=== PATIENT | male | born 1960 | race Caucasian/White ===

== ENCOUNTER 2020-07-02 05:57 | Day surgery (SDC) | payer BC ==
[2020-07-02] VITALS (12 sets, daily range): BP systolic 118–163; BP diastolic 68–93
[~2020-07-02] VITALS: Ht 188 cm; Wt 106.4 kg
[2020-07-02] MEDS ORDERED: diphenhydrAMINE 25mg capsule PO PRN (06:20)
[2020-07-02] MEDS ORDERED: normal saline 1,000 ML IV SCH (06:20)
[2020-07-02] MEDS ORDERED: LIDOcaine/PRILOcaine 5gm cream TP ONE (06:20)
[2020-07-02] MEDS ORDERED: LORazepam 0.5 MG tablet PO PRN (06:20)
[2020-07-02] MEDS ORDERED: ROSU10TA2 PO (06:24)
[2020-07-02] MEDS ORDERED: AMLO-254 PO (06:24)
[2020-07-02] MEDS ORDERED: ALB0.5UD IH (06:24)
[2020-07-02] MEDS ORDERED: CARV-50 PO (06:24)
[2020-07-02] MEDS ORDERED: midazolam 2 mg/2 ml injection ONE (08:12)
[2020-07-02] MEDS ORDERED: fentaNYL/PF 50MCG/1 ML 2ML syringe ONE (08:12)
[2020-07-02] MEDS ORDERED: LIDOcaine 1% (10mg/ml)w/preservative injection 20ml MDV ONE (08:12)
[2020-07-02] MEDS ORDERED: iohexol 350MG/ML 100ml bottle IV ONE (08:12)
[2020-07-02] MEDS ORDERED: heparin 1,000unit/ml 10ml vial 10 ML ONE (08:14)
[2020-07-02] MEDS ORDERED: nitroGLYCERIN-Tridil 50MG/D5W 250 ML IV ONE (08:14)
[2020-07-02] MEDS ORDERED: verapamil 2.5 mg/ml inj IV ONE (08:14)
== END 2020-07-02 12:50 | disposition home or self-care (01) ==
LOC: SSTAY O 05:57
PROVIDERS: ATTEND Internal Medicine Interventional Cardiology
DX: R94.39 Abnormal result of other cardiovascular function study (principal); R06.02 Shortness of breath; I25.10 Atherosclerotic heart disease of native coronary artery without angina pectoris; I25.82 Chronic total occlusion of coronary artery; I11.9 Hypertensive heart disease without heart failure; I08.1 Rheumatic disorders of both mitral and tricuspid valves; E78.00 Pure hypercholesterolemia, unspecified; J45.909 Unspecified asthma, uncomplicated; Z79.899 Other long term (current) drug therapy; Z98.890 Other specified postprocedural states; Z82.49 Family history of ischemic heart disease and other diseases of the circulatory system
CPT/HCPCS: 93005; 93308; 93458; 93880; 93931; 93971; 94010; 99152; C1769; C1894; J1644; J2001; J2250; J3010; J7030; Q0163; Q9967; A4620; A5120; J3490

== ENCOUNTER 2020-07-17 05:17 | Inpatient (IN) | payer BC ==
[2020-07-10 13:23] LABS: CLARITY,URINE CLEAR (Clear); COLOR,URINE YELLOW (Yellow); GLUCOSE, URINE NEGATIVE (Neg); KETONES,URINE NEGATIVE (Neg); LEUKOCYTE ESTERASE ,URINE NEGATIVE (Neg); NITRITES, URINE NEGATIVE (Neg); OCCULT BLOOD,URINE SMALL (Neg); PH,URINE 5.5 (4.8-8.0); PROTEIN,URINE NEGATIVE (Neg); UROBILINOGEN,URINE 0.2 E.U/dL (0.2-1.0)
[2020-07-10 13:25] LABS: UA COLLECTION TYPE CLN CATCH MIDSTREAM
[2020-07-10 13:26] LABS: BASOPHILS % (AUTO) 0.5 % (0-1); EOSINOPHILS # (AUTO) 0.2 X10'3 (0-0.9); EOSINOPHILS % (AUTO) 2.6 % (0-6); LYMPHOCYTES # (AUTO) 1.8 X10'3 (1.1-4.8); LYMPHOCYTES % (AUTO) 22.3 % (21-51); MEAN CORPUSCULAR HEMOGLOBIN 32.7 PG (27.0-31.0); MEAN CORPUSCULAR HGB CONC 34.3 g/dL (33.0-36.5); MEAN CORPUSCULAR VOLUME 95.3 FL (78-98); MEAN PLATELET VOLUME 8.5 FL (7.4-10.4); MONOCYTES # (AUTO) 0.8 X10'3 (0-0.9); MONOCYTES % (AUTO) 9.6 % (2-12); NEUTROPHILS # (AUTO) 5.1 X10'3 (1.8-7.7); PRE OP HEMATOCRIT 47.2 % (42.0-52.0); PRE OP HEMOGLOBIN 16.2 g/dL (14.0-17.9); PRE OP PLATELET COUNT 194 X10'3 (140-440); RED BLOOD COUNT 4.95 X10'6 (4.70-6.10); RED CELL DISTRIBUTION WIDTH 13.2 % (11.5-14.5)
[2020-07-10 13:34] LABS: HEMOGLOBIN A1C 5.7 % (4.5-6.2)
[2020-07-10 13:36] LABS: PRE OP PROTIME 10.5 SECONDS (9.0-12.0)
[2020-07-10 13:40] LABS: MUCUS STRANDS FEW /LPF (Neg); SQUAMOUS EPITHELIAL CELL,UR FEW /LPF (FEW)
[2020-07-10 13:41] LABS: BACTERIA,URINE FEW /HPF (Neg); RBC,URINE 0-2 /HPF (0-2); WBC,URINE 0-4 /HPF (0-4)
[2020-07-10 13:41] LABS: ALBUMIN 4.3 G/DL (3.4-5.0); ALKALINE PHOSPHATASE 83 IU/L (46-116); BLOOD UREA NITROGEN 20 MG/DL (7-18); BUN/CREATININE RATIO 19.8 (5.4-32.0); CALCIUM 9.5 MG/DL (8.5-10.1); CHLORIDE 102 MMOL/L (99-107); CREATININE 1.01 MG/DL (0.60-1.10); PRE OP ALT 65 U/L (30-65); PRE OP ANION GAP 7 (8-16); PRE OP AST 30 U/L (10-37); PRE OP BILIRUB, TOTAL 0.8 MG/DL (0.0-1.0); PRE OP GLUCOSE 99 MG/DL (70-104); PRE OP POTASSIUM 4.4 MMOL/L (3.4-5.1); PRE OP SODIUM 138 MMOL/L (135-145); TOTAL PROTEIN 8.5 G/DL (6.4-8.2); eGFR 76 ML/MIN
[2020-07-10 14:01] LABS: ABG BASE EXCESS -1.9 mmol/L (-2.0-2.0); ABG HCO3 21.4 mmol/L (22.0-26.0); ABG OXYGEN SATURATION 97.3 % (94-97); ABG PCO2 (T) 32.7 mmHg (35.0-48.0); ABG PO2 (T) 95.7 mmHg (75.0-100.0); ALLEN'S TEST POSITIVE; FCOHb 0.6 % (0.0-3.9); FMetHb 0.2 % (0.0-1.5); FO2Hb 96.5 % (94-97); TOTAL HEMOGLOBIN 16.2 G/dl (14.0-18.0)
[~2020-07-17] VITALS: Ht 182.9 cm; Wt 102.2 kg
[2020-07-17] VITALS (15 sets, daily range): BP systolic 102–144; BP diastolic 51–91
[~2020-07-17 05:17] MED LIST: AMLO-94 PO; ASPI81TA52 PO; CARV-50 PO; LORazepam 2 mg/ml vial ONE; ROSU20TA31 PO; albuterol 2.5 MG/3 ML nebule NEB PRN; ceFAZolin 1000mg inj ONE; ringers solution, lacted 1,000 ML IV SCH
[2020-07-17] MEDS ORDERED: dextrose 50%-water 50ml dispensing syringe IV PRN ×2 (05:30→12:30)
[2020-07-17] MEDS ORDERED: insulin glargine (Lantus) pen - multi-dose SQ PRN ×2 (05:30→12:30)
[2020-07-17] MEDS ORDERED: vancomycin 1,500 MG in NS 300ml IV soln IV ONE (05:30)
[2020-07-17] MEDS ORDERED: ceFAZolin 2gm in dextrose, iso 50 ML IV ONE (05:30)
[2020-07-17] MEDS ORDERED: metoprolol tartrate 12.5mg (1/2 tablet) PO ONE (05:30)
[2020-07-17] MEDS ORDERED: DOCUMENT DATE & TIME OF BETA-BLOCKER PO ONE (05:30)
[2020-07-17] MEDS ORDERED: famotidine 20mg tablet PO ONE (05:30)
[2020-07-17] MEDS ORDERED: mupirocin 2% nasal ointment 1gm UD NS ONE (05:30)
[2020-07-17] MEDS ORDERED: gabapentin 400mg capsule PO ONE (05:30)
[2020-07-17] MEDS: Insulin Reg/NS 100units/100mL 100 ML IV SCH (05:30)
[2020-07-17] MEDS ORDERED: albuterol 2.5 MG/3 ML nebule NEB ONE (05:30)
[2020-07-17] MEDS ORDERED: LIDOcaine 1% (10mg/ml) 2ml vial ONE (05:40)
[2020-07-17] MEDS ORDERED: LORazepam 2 mg/ml vial IV ONE (06:25)
[2020-07-17] MEDS ORDERED: DOPamine/D5W 400mg/250ml bag IV ONE (06:55)
[2020-07-17] MEDS ORDERED: BUPIVAcaine/PF 2.5mg/ml (0.25%) 10ml vial ONE (06:55)
[2020-07-17] MEDS ORDERED: aminocaproic acid 250 MG/1 ML inj. ONE ×2 (06:55→08:00)
[2020-07-17] MEDS ORDERED: protamine sulf. 10mg/ml inj. IV ONE (06:55)
[2020-07-17] MEDS ORDERED: nitroGLYCERIN in D5W 50mg/250ml (Tridil) infusion IV ONE (06:55)
[2020-07-17] MEDS ORDERED: isoflurane 100ml inhalation liquid IH ONE (06:55)
[2020-07-17] MEDS ORDERED: SUFENTANIL CITRATE 50 MCG/ML 2ml ampule IV ONE (06:57)
[2020-07-17] MEDS ORDERED: LIDOcaine 2% (20mg/ml) 5ml vial ONE (06:59)
[2020-07-17] MEDS ORDERED: pancuronium br 1mg/ml inj IV ONE (06:59)
[2020-07-17] MEDS ORDERED: rocuronium 10mg/ml inj IV ONE (06:59)
[2020-07-17] MEDS ORDERED: propofol inj 20 ML IV ONE (06:59)
[2020-07-17] MEDS ORDERED: papaverine 30 mg/ml 2ml inj. IA ONE (07:00)
[2020-07-17] MEDS ORDERED: heparin 10,000 units/1 ML INJ IR ONE (07:00)
[2020-07-17 07:55] LABS: ABG BASE EXCESS -3.9 mmol/L (-2.0-2.0); ABG HCO3 19.1 mmol/L (22.0-26.0); ABG OXYGEN SATURATION 97.4 % (94-97); ABG PCO2 29.3 mmHg (35.0-48.0); ABG PO2 100.1 mmHg (75.0-100.0); CL (ABG) 104 mmol/L (98-110); FCOHb 0.1 % (0.0-3.9); FMetHb 0.5 % (0.0-1.5); FO2Hb 96.8 % (94-97); GLUCOSE (ABG) 84 mg/dl (70-140); IONIZED CA (ABG) 1.13 mmol/L (1.10-1.43); K (ABG) 4.1 mmol/L (3.5-5.0); TOTAL HEMOGLOBIN 14.1 G/dl (14.0-18.0)
[2020-07-17] MEDS ORDERED: phenylephrine 10mg/ml inj. ONE (08:00)
[2020-07-17] MEDS ORDERED: LIDOcaine 2% (20 mg/ml) 5ml cardiac syringe ONE (08:00)
[2020-07-17] MEDS ORDERED: albumin (human) 25% 100 ML IV solution IV ONE (08:00)
[2020-07-17] MEDS ORDERED: heparin 10,000 units/1 ML INJ ONE ×2 (08:00)
[2020-07-17] MEDS ORDERED: calcium chloride 100 MG/1 ML inj IV ONE (08:00)
[2020-07-17] MEDS ORDERED: sodium bicarbonate (8.4%) 1 mEq/ml syringe ONE (08:00)
[2020-07-17] MEDS ORDERED: MAGNESIUM SULFATE 4 MEQ/ML (5gm/10ml) injection ONE (08:00)
[2020-07-17] MEDS ORDERED: papaverine 30 mg/ml 2ml inj. ONE (08:00)
[2020-07-17] MEDS ORDERED: albuterol 2.5 MG/3 ML nebule NEB PRN (08:20)
[2020-07-17 09:06] LABS: ABG BASE EXCESS -2.7 mmol/L (-2.0-2.0); ABG HCO3 20.5 mmol/L (22.0-26.0); ABG OXYGEN SATURATION 96.3 % (94-97); ABG PCO2 31.3 mmHg (35.0-48.0); ABG PO2 82.7 mmHg (75.0-100.0); CL (ABG) 104 mmol/L (98-110); FCOHb 0.4 % (0.0-3.9); FO2Hb 95.9 % (94-97); GLUCOSE (ABG) 112 mg/dl (70-140); K (ABG) 4.3 mmol/L (3.5-5.0); TOTAL HEMOGLOBIN 13.3 G/dl (14.0-18.0)
[2020-07-17 09:41] LABS: ABG BASE EXCESS VENOUS -0.7 mmol/L; ABG HCO3 VENOUS 24.1 mmol/L; ABG PCO2 VENOUS 40.2 mmHg; ABG PO2 VENOUS 47.4 mmHg; CL (ABG) 102 mmol/L (98-110); FCOHb VENOUS 0.4 %; FHHb VENOUS 17.1 %; FMetHb VENOUS 0.3 %; FO2Hb VENOUS 82.2 %; GLUCOSE (ABG) 111 mg/dl (70-140); IONIZED CA (ABG) 1.02 mmol/L (1.10-1.43); K (ABG) 5.2 mmol/L (3.5-5.0); TOTAL HEMOGLOBIN 11.4 G/dl (14.0-18.0)
[2020-07-17 09:45] LABS: ABG BASE EXCESS -0.8 mmol/L (-2.0-2.0); ABG HCO3 23.9 mmol/L (22.0-26.0); ABG OXYGEN SATURATION 99.4 % (94-97); ABG PCO2 39.9 mmHg (35.0-48.0); ABG PO2 370.7 mmHg (75.0-100.0); CL (ABG) 102 mmol/L (98-110); FCOHb 0.3 % (0.0-3.9); FMetHb 0.3 % (0.0-1.5); FO2Hb 98.8 % (94-97); GLUCOSE (ABG) 112 mg/dl (70-140); IONIZED CA (ABG) 1.03 mmol/L (1.10-1.43); K (ABG) 4.7 mmol/L (3.5-5.0); TOTAL HEMOGLOBIN 11.5 G/dl (14.0-18.0)
[2020-07-17 10:21] LABS: ABG BASE EXCESS -1.4 mmol/L (-2.0-2.0); ABG HCO3 23.9 mmol/L (22.0-26.0); ABG OXYGEN SATURATION 99.1 % (94-97); ABG PCO2 42.6 mmHg (35.0-48.0); ABG PO2 296.7 mmHg (75.0-100.0); CL (ABG) 103 mmol/L (98-110); FCOHb 0.3 % (0.0-3.9); FMetHb 0.4 % (0.0-1.5); FO2Hb 98.4 % (94-97); GLUCOSE (ABG) 140 mg/dl (70-140); IONIZED CA (ABG) 1.05 mmol/L (1.10-1.43); K (ABG) 5.1 mmol/L (3.5-5.0); TOTAL HEMOGLOBIN 11.9 G/dl (14.0-18.0)
[2020-07-17 10:55] LABS: ABG BASE EXCESS -2.3 mmol/L (-2.0-2.0); ABG OXYGEN SATURATION 99.1 % (94-97); ABG PCO2 47.7 mmHg (35.0-48.0); CL (ABG) 104 mmol/L (98-110); FCOHb 0.3 % (0.0-3.9); FMetHb 0.3 % (0.0-1.5); FO2Hb 98.5 % (94-97); GLUCOSE (ABG) 177 mg/dl (70-140); IONIZED CA (ABG) 1.06 mmol/L (1.10-1.43); K (ABG) 4.7 mmol/L (3.5-5.0); TOTAL HEMOGLOBIN 12.1 G/dl (14.0-18.0)
[2020-07-17 11:16] LABS: ABG BASE EXCESS -0.2 mmol/L (-2.0-2.0); ABG HCO3 26.5 mmol/L (22.0-26.0); ABG OXYGEN SATURATION 97.4 % (94-97); ABG PO2 112.8 mmHg (75.0-100.0); CL (ABG) 108 mmol/L (98-110); FCOHb 0.3 % (0.0-3.9); FMetHb 0.3 % (0.0-1.5); FO2Hb 96.8 % (94-97); GLUCOSE (ABG) 175 mg/dl (70-140); TOTAL HEMOGLOBIN 11.5 G/dl (14.0-18.0)
[2020-07-17 12:05] LABS: ABG BASE EXCESS -1.3 mmol/L (-2.0-2.0); ABG HCO3 23.6 mmol/L (22.0-26.0); ABG OXYGEN SATURATION 96.3 % (94-97); ABG PCO2 40.1 mmHg (35.0-48.0); ABG PO2 86.5 mmHg (75.0-100.0); CL (ABG) 105 mmol/L (98-110); FCOHb 0.4 % (0.0-3.9); FMetHb 0.3 % (0.0-1.5); FO2Hb 95.6 % (94-97); GLUCOSE (ABG) 156 mg/dl (70-140); IONIZED CA (ABG) 1.19 mmol/L (1.10-1.43); K (ABG) 4.3 mmol/L (3.5-5.0); TOTAL HEMOGLOBIN 12.9 G/dl (14.0-18.0)
[2020-07-17] MEDS ORDERED: acetaminophen 1,000mg/100ml IV 100 ML IV ONE (12:09)
[2020-07-17] MEDS ORDERED: normal saline 250ml IV soln 250 ML IV PRN (12:30)
[2020-07-17] MEDS ORDERED: bisacodyl 10mg suppository rectal RC PRN (12:30)
[2020-07-17] MEDS ORDERED: DOPamine 400mg/D5W 250ml 250 ML IV PRN (12:30)
[2020-07-17] MEDS ORDERED: sodium chloride 0.45% 1,000 ML IV SCH (12:30)
[2020-07-17] MEDS ORDERED: magnesium citrate 296ml oral solution PO PRN (12:30)
[2020-07-17] MEDS ORDERED: acetaminophen 325mg tablet PO PRN ×2 (12:30)
[2020-07-17] MEDS ORDERED: potassium Cl 20 mEq SR tablet PO PRN (12:30)
[2020-07-17] MEDS ORDERED: pantoprazole 40 MG vial IV ONE (12:30)
[2020-07-17] MEDS ORDERED: magnesium hydroxide 30ml (MOM) UD suspension PO PRN (12:30)
[2020-07-17] MEDS ORDERED: nitroGLYCERIN-Tridil 50MG/D5W 250 ML IV PRN (12:30)
[2020-07-17] MEDS ORDERED: ondansetron/PF 4mg/2ml inj IV PRN (12:30)
[2020-07-17] MEDS ORDERED: magnesium 4gm in 100ml NS 100 ML IV PRN (12:30)
[2020-07-17] MEDS ORDERED: sodium phosphate inj. 15 MMOL in dextrose 5%-water 250 ML IV PRN (12:30)
[2020-07-17] MEDS ORDERED: mineral oil 133ml enema RC PRN (12:30)
[2020-07-17] MEDS ORDERED: Insulin Reg/NS 100units/100mL 100 ML IV SCH (12:30)
[2020-07-17] MEDS ORDERED: HYDROcodone/acetaminophen 10/325mg tab PO PRN (12:30)
[2020-07-17] MEDS ORDERED: niCARDipine-NS 40mg/200ml IVPB 200 ML IV PRN (12:30)
[2020-07-17] MEDS ORDERED: metoclopramide 5 mg/ml inj IV PRN (12:30)
[2020-07-17] MEDS ORDERED: sodium phosphate inj. 30 MMOL in dextrose 5%-water 250 ML IV PRN (12:30)
[2020-07-17] MEDS ORDERED: Neutra Phos packet PO PRN (12:30)
--- NOTE | 2020-07-17 12:30 | NUR ---
Received to room , accompanied by MDs and surgical crew. Placed on ventilator, to threat monitoring analyst, arterial line and PA line pressure monitored. Chest tubes to suction at 20 cm. Regalado cath to gravity drainage. Dressings are dry and intact. See assessment record. All vasoactive drugs are infusing via central line.
[2020-07-17 12:40] LABS: ACTIVATED CLOTTING TIME 119 SEC (101-148)
[2020-07-17 12:57] LABS: BASOPHILS % (AUTO) 0.3 % (0-1); EOSINOPHILS # (AUTO) 0.1 X10'3 (0-0.9); EOSINOPHILS % (AUTO) 0.6 % (0-6); HEMATOCRIT 37.3 % (42.0-52.0); HEMOGLOBIN 12.7 g/dl (14.0-17.9); LYMPHOCYTES # (AUTO) 0.9 X10'3 (1.1-4.8); LYMPHOCYTES % (AUTO) 8.7 % (21-51); MEAN CORPUSCULAR HEMOGLOBIN 32.5 PG (27.0-31.0); MEAN CORPUSCULAR HGB CONC 34.1 g/dL (33.0-36.5); MEAN CORPUSCULAR VOLUME 95.3 FL (78-98); MEAN PLATELET VOLUME 8.4 FL (7.4-10.4); MONOCYTES # (AUTO) 0.5 X10'3 (0-0.9); MONOCYTES % (AUTO) 4.9 % (2-12); NEUTROPHILS % (AUTO) 85.5 % (42-75); PLATELET COUNT 113 X10'3 (140-440); RED BLOOD COUNT 3.92 X10'6 (4.70-6.10); RED CELL DISTRIBUTION WIDTH 12.8 % (11.5-14.5); WHITE BLOOD COUNT 10.5 X10'3 (4.5-11.0)
[2020-07-17 13:14] LABS: PARTIAL THROMBOPLASTIN TIME 29 SECONDS (22-32)
[2020-07-17 13:22] LABS: ALANINE AMINOTRANSFERASE 39 U/L (12-78); ALBUMIN 2.8 G/DL (3.4-5.0); ALBUMIN/GLOBULIN RATIO 1.2 (1.1-1.5); ALKALINE PHOSPHATASE 45 IU/L (46-116); ANION GAP 7 (8-16); ASPARTATE AMINO TRANSFERASE 22 U/L (10-37); BILIRUBIN,TOTAL 0.7 MG/DL (0.1-1.0); BLOOD UREA NITROGEN 17 MG/DL (7-18); BUN/CREATININE RATIO 14.3 (5.4-32.0); CALCIUM 8.2 MG/DL (8.5-10.1); CHLORIDE 109 MMOL/L (99-107); CREATININE 1.19 MG/DL (0.60-1.10); GLUCOSE 133 MG/DL (70-104); MAGNESIUM 2.2 MG/DL (1.5-2.4); PHOSPHORUS 2.6 MG/DL (2.3-4.5); POTASSIUM 3.9 MMOL/L (3.5-5.1); SODIUM 142 MMOL/L (135-145); TOTAL CARBON DIOXIDE 25.9 MMOL/L (24-32); TOTAL PROTEIN 5.2 G/DL (6.4-8.2); eGFR 63 ML/MIN
[2020-07-17 13:51] LABS: ABG BASE EXCESS 0.9 mmol/L (-2.0-2.0); ABG HCO3 24.3 mmol/L (22.0-26.0); ABG OXYGEN SATURATION 96.6 % (94-97); ABG PCO2 (T) 33.9 mmHg (35.0-48.0); FCOHb 0.1 % (0.0-3.9); FMetHb 0.3 % (0.0-1.5); FO2Hb 96.2 % (94-97); PATIENT TEMPERATURE 36.2; PEEP 5 cm H2O; RESPIRATORY RATE 12 b/min; TIDAL VOLUME 700 mL; TOTAL HEMOGLOBIN 13.8 G/dl (14.0-18.0)
[2020-07-17] MEDS: gabapentin 300mg capsule PO SCH ×2 (14:04→20:50)
[2020-07-17] MEDS: morphine 4 MG/ML inj SYRINge IV PRN ×3 (14:05→23:35)
[2020-07-17] MEDS: potassium Cl 20mEq/100mL bag 100 ML IV PRN ×3 (14:29→20:20)
[2020-07-17] MEDS: albumin (Human) 5% 250ml 250 ML IV PRN ×2 (14:36→16:39)
[2020-07-17] MEDS: magnesium 2GM in 50ml NS 50 ML IV PRN ×2 (15:23→23:22)
[2020-07-17] MEDS: ceFAZolin 1GM/D5W- ADD-VANTAGE 50 ML IV SCH (15:35)
--- NOTE | 2020-07-17 18:30 | NUR ---
Patient in room CICU 2009. I have received report from Chai and had the opportunity to ask questions and assume patient care.
[2020-07-17 18:34] LABS: BASOPHILS % (AUTO) 0.1 % (0-1); EOSINOPHILS % (AUTO) 0.1 % (0-6); HEMATOCRIT 35.3 % (42.0-52.0); HEMOGLOBIN 12.3 g/dl (14.0-17.9); LYMPHOCYTES # (AUTO) 0.5 X10'3 (1.1-4.8); LYMPHOCYTES % (AUTO) 4.8 % (21-51); MEAN CORPUSCULAR HEMOGLOBIN 33.3 PG (27.0-31.0); MEAN CORPUSCULAR HGB CONC 34.8 g/dL (33.0-36.5); MEAN CORPUSCULAR VOLUME 95.7 FL (78-98); MEAN PLATELET VOLUME 8.5 FL (7.4-10.4); MONOCYTES # (AUTO) 0.5 X10'3 (0-0.9); MONOCYTES % (AUTO) 4.7 % (2-12); NEUTROPHILS # (AUTO) 9.2 X10'3 (1.8-7.7); NEUTROPHILS % (AUTO) 90.3 % (42-75); PLATELET COUNT 115 X10'3 (140-440); RED BLOOD COUNT 3.69 X10'6 (4.70-6.10); RED CELL DISTRIBUTION WIDTH 12.8 % (11.5-14.5); WHITE BLOOD COUNT 10.2 X10'3 (4.5-11.0)
[2020-07-17 18:47] LABS: ALBUMIN 3.2 G/DL (3.4-5.0); ANION GAP 7 (8-16); BLOOD UREA NITROGEN 16 MG/DL (7-18); BUN/CREATININE RATIO 13.4 (5.4-32.0); CHLORIDE 111 MMOL/L (99-107); CREATININE 1.19 MG/DL (0.60-1.10); GLUCOSE 118 MG/DL (70-104); MAGNESIUM 2.4 MG/DL (1.5-2.4); PHOSPHORUS 2.9 MG/DL (2.3-4.5); SODIUM 142 MMOL/L (135-145); TOTAL CARBON DIOXIDE 24.5 MMOL/L (24-32); eGFR 63 ML/MIN
[2020-07-17] MEDS: vancomycin/NS 1 GM ADD-VANTAGE 250 ML IV SCH (19:53)
[2020-07-17] MEDS: sennosides/docusate sodium tablet PO SCH (20:00)
[2020-07-17] MEDS: mupirocin 2% nasal ointment 1gm UD NS SCH (20:00)
--- NOTE | 2020-07-17 20:23 | NUR ---
Blood glucose 146 insulin restarted at 1.4 units/hour. Dopamine turned off
[2020-07-17] MEDS: atorvastatin 10mg tablet PO SCH (20:50)
--- NOTE | 2020-07-17 22:19 | NUR ---
pt on SBT will monitor
[2020-07-17 23:20] LABS: ABG HCO3 23.5 mmol/L (22.0-26.0); ABG OXYGEN SATURATION 94.4 % (94-97); ABG PCO2 (T) 38.9 mmHg (35.0-48.0); ABG PO2 (T) 75.9 mmHg (75.0-100.0); FCOHb 0.3 % (0.0-3.9); FMetHb 0.3 % (0.0-1.5); FO2Hb 93.8 % (94-97); PATIENT TEMPERATURE 37.2; PEEP 5 cm H2O; TOTAL HEMOGLOBIN 12.7 G/dl (14.0-18.0)
--- NOTE | 2020-07-17 23:30 | NUR ---
pt extubated placed on 4 liters NC, will monitor
[2020-07-18] VITALS (24 sets, daily range): BP systolic 112–166; BP diastolic 7–83
[2020-07-18] MEDS: ceFAZolin 1GM/D5W- ADD-VANTAGE 50 ML IV SCH ×3 (00:18→17:18)
[2020-07-18] MEDS: morphine 4 MG/ML inj SYRINge IV PRN ×3 (01:44→08:59)
[2020-07-18 03:57] LABS: BASOPHILS % (AUTO) 0.1 % (0-1); EOSINOPHILS % (AUTO) 0 % (0-6); HEMATOCRIT 35.4 % (42.0-52.0); HEMOGLOBIN 12.1 g/dl (14.0-17.9); LYMPHOCYTES # (AUTO) 0.5 X10'3 (1.1-4.8); LYMPHOCYTES % (AUTO) 4.8 % (21-51); MEAN CORPUSCULAR HEMOGLOBIN 32.9 PG (27.0-31.0); MEAN CORPUSCULAR HGB CONC 34.2 g/dL (33.0-36.5); MEAN CORPUSCULAR VOLUME 96.4 FL (78-98); MEAN PLATELET VOLUME 9.1 FL (7.4-10.4); MONOCYTES # (AUTO) 0.7 X10'3 (0-0.9); NEUTROPHILS # (AUTO) 9.2 X10'3 (1.8-7.7); NEUTROPHILS % (AUTO) 88.1 % (42-75); PLATELET COUNT 104 X10'3 (140-440); RED BLOOD COUNT 3.68 X10'6 (4.70-6.10); WHITE BLOOD COUNT 10.5 X10'3 (4.5-11.0)
[2020-07-18 04:07] LABS: PARTIAL THROMBOPLASTIN TIME 27 SECONDS (22-32)
[2020-07-18 04:20] LABS: ALANINE AMINOTRANSFERASE 37 U/L (12-78); ALBUMIN 3.4 G/DL (3.4-5.0); ALBUMIN/GLOBULIN RATIO 1.3 (1.1-1.5); ALKALINE PHOSPHATASE 47 IU/L (46-116); ANION GAP 9 (8-16); ASPARTATE AMINO TRANSFERASE 24 U/L (10-37); BILIRUBIN,TOTAL 0.8 MG/DL (0.1-1.0); BLOOD UREA NITROGEN 15 MG/DL (7-18); BUN/CREATININE RATIO 14.9 (5.4-32.0); CALCIUM 7.9 MG/DL (8.5-10.1); CHLORIDE 107 MMOL/L (99-107); CREATININE 1.01 MG/DL (0.60-1.10); GLUCOSE 142 MG/DL (70-104); MAGNESIUM 2.7 MG/DL (1.5-2.4); POTASSIUM 4.3 MMOL/L (3.5-5.1); SODIUM 139 MMOL/L (135-145); eGFR 76 ML/MIN
--- NOTE | 2020-07-18 04:20 | NUR ---
NTG increased to 5 mcg/min for increasing blood pressure
[2020-07-18] MEDS: potassium Cl 20mEq/100mL bag 100 ML IV PRN ×2 (04:27→05:12)
--- NOTE | 2020-07-18 04:48 | NUR ---
ntg at 10 mcg/min bp above parameters. pt medicated for pain will monitor
--- NOTE | 2020-07-18 05:50 | NUR ---
PT sat up and dangled at side of bed, tolerated well. PT stood at side of bed as well and again tolerated well, there was no drop in BP, hemodynamics remained stable and PT denied any lightheadedness/dizziness. PT back to bed. Will continue to monitor.
--- NOTE | 2020-07-18 06:22 | NUR ---
Problems reprioritized. Patient report given, questions answered & plan of care reviewed with Marlon LINK.
[2020-07-18 07:23] LABS: IONIZED CA (ABG) > 2.84 mmol/L (1.10-1.43)
[2020-07-18] MEDS: ascorbic acid 500mg tablet PO SCH ×2 (08:22→17:18)
[2020-07-18] MEDS: aspirin 325mg tablet, delayed-release (Ecotrin) PO SCH (08:22)
[2020-07-18] MEDS: gabapentin 300mg capsule PO SCH ×3 (08:22→20:20)
[2020-07-18] MEDS: metoprolol tartrate 12.5mg (1/2 tablet) PO SCH ×2 (08:24→20:20)
[2020-07-18] MEDS: sennosides/docusate sodium tablet PO SCH ×2 (08:24→20:19)
[2020-07-18] MEDS: vancomycin/NS 1 GM ADD-VANTAGE 250 ML IV SCH ×2 (08:25→20:21)
[2020-07-18] MEDS: mupirocin 2% nasal ointment 1gm UD NS SCH ×2 (08:25→20:21)
[2020-07-18] MEDS: guaiFENesin ER 600mg tablet PO SCH ×2 (09:26→20:20)
--- NOTE | 2020-07-18 10:59 | NUR ---
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 Will continue to follow. Addendum: 07/18/20 at [address]án[address] Amended: Links added.
[2020-07-18] MEDS: Insulin Reg/NS 100units/100mL 100 ML IV SCH (14:50)
[2020-07-18] MEDS: atorvastatin 10mg tablet PO SCH (20:20)
[2020-07-18] MEDS: HYDROcodone/acetaminophen 10/325mg tab PO PRN (20:21)
[2020-07-19] VITALS (18 sets, daily range): BP systolic 95–137; BP diastolic 62–81
[2020-07-19] MEDS: ceFAZolin 1GM/D5W- ADD-VANTAGE 50 ML IV SCH (00:06)
[2020-07-19 03:21] LABS: BASOPHILS % (AUTO) 0.1 % (0-1); EOSINOPHILS % (AUTO) 0 % (0-6); HEMATOCRIT 31.8 % (42.0-52.0); HEMOGLOBIN 10.8 g/dl (14.0-17.9); LYMPHOCYTES # (AUTO) 0.9 X10'3 (1.1-4.8); LYMPHOCYTES % (AUTO) 6.9 % (21-51); MEAN CORPUSCULAR HEMOGLOBIN 32.7 PG (27.0-31.0); MEAN CORPUSCULAR HGB CONC 34.1 g/dL (33.0-36.5); MEAN CORPUSCULAR VOLUME 96.1 FL (78-98); MEAN PLATELET VOLUME 9.1 FL (7.4-10.4); MONOCYTES # (AUTO) 1.2 X10'3 (0-0.9); NEUTROPHILS # (AUTO) 10.4 X10'3 (1.8-7.7); RED BLOOD COUNT 3.31 X10'6 (4.70-6.10); RED CELL DISTRIBUTION WIDTH 13.1 % (11.5-14.5); WHITE BLOOD COUNT 12.5 X10'3 (4.5-11.0)
[2020-07-19 03:23] LABS: PLATELET COUNT 98 X10'3 (140-440)
[2020-07-19 03:41] LABS: ALBUMIN 3.2 G/DL (3.4-5.0); ANION GAP 5 (8-16); BLOOD UREA NITROGEN 15 MG/DL (7-18); BUN/CREATININE RATIO 16.7 (5.4-32.0); CALCIUM 7.9 MG/DL (8.5-10.1); CHLORIDE 106 MMOL/L (99-107); GLUCOSE 146 MG/DL (70-104); MAGNESIUM 2.3 MG/DL (1.5-2.4); POTASSIUM 4.5 MMOL/L (3.5-5.1); SODIUM 139 MMOL/L (135-145); TOTAL CARBON DIOXIDE 27.7 MMOL/L (24-32); eGFR 87 ML/MIN
--- NOTE | 2020-07-19 06:59 | NUR ---
Patient in room CICU 2009. I have received report from FARIBA Pagan and had the opportunity to ask questions and assume patient care.
[2020-07-19] MEDS: gabapentin 300mg capsule PO SCH (07:32)
[2020-07-19] MEDS: aspirin 325mg tablet, delayed-release (Ecotrin) PO SCH (07:32)
[2020-07-19] MEDS: guaiFENesin ER 600mg tablet PO SCH ×2 (07:33→20:00)
[2020-07-19] MEDS: sennosides/docusate sodium tablet PO SCH ×2 (07:33→21:33)
[2020-07-19] MEDS: pantoprazole 40mg Tablet.DR PO SCH (07:33)
[2020-07-19] MEDS: metoprolol tartrate 12.5mg (1/2 tablet) PO SCH (07:33)
[2020-07-19] MEDS: mupirocin 2% nasal ointment 1gm UD NS SCH (07:33)
[2020-07-19] MEDS ORDERED: furosemide 40mg/4ml inj IV ONE (08:20)
[2020-07-19] MEDS ORDERED: potassium Cl 20 mEq SR tablet PO PRN (08:50)
[2020-07-19] MEDS ORDERED: magnesium 4gm in 100ml NS 100 ML IV PRN (08:50)
[2020-07-19] MEDS ORDERED: magnesium 2GM in 50ml NS 50 ML IV PRN (08:50)
[2020-07-19] MEDS ORDERED: potassium Cl 20mEq/100mL bag 100 ML IV PRN (08:50)
[2020-07-19] MEDS: ascorbic acid 500mg tablet PO SCH ×2 (09:10→21:24)
--- NOTE | 2020-07-19 18:00 | NUR ---
Patient in room MED 315. I have received report from BERTRAND LINK and had the opportunity to ask questions and assume patient care.
--- NOTE | 2020-07-19 18:17 | NUR ---
Problems reprioritized. Patient report given, questions answered & plan of care reviewed with FARIBA Jack.
[2020-07-19] MEDS: potassium Cl 20 mEq SR tablet PO SCH (20:00)
[2020-07-19] MEDS: magnesium Cl slow-release 64mg tablet PO SCH (20:00)
[2020-07-19] MEDS: carvedilol 6.25mg tablet PO SCH (21:24)
[2020-07-19] MEDS: atorvastatin 10mg tablet PO SCH (21:24)
[2020-07-20 02:00] VITALS: BP 110/72
--- NOTE | 2020-07-20 05:12 | NUR ---
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 HAD PHONE CONVERSATION WITH SALES MARKETING MANAGER ANGIE TO REQUEST AMPLE TIME FOR RECOVERY, ASKED TO MENTION THIS TO MD VARGHESE. DOES NOT WANT FATHER DISCHARGED POD DAY 4, WANTS PATIENT TO HAVE SUFFICIENT RECOVERY TIME FROM [address] CABG. JOHANNY LINK
[2020-07-20 05:50] LABS: BASOPHILS % (AUTO) 0.3 % (0-1); EOSINOPHILS % (AUTO) 0.2 % (0-6); HEMATOCRIT 36.7 % (42.0-52.0); HEMOGLOBIN 12.2 g/dl (14.0-17.9); LYMPHOCYTES # (AUTO) 2.3 X10'3 (1.1-4.8); LYMPHOCYTES % (AUTO) 15.4 % (21-51); MEAN CORPUSCULAR HGB CONC 33.2 g/dL (33.0-36.5); MEAN CORPUSCULAR VOLUME 96.4 FL (78-98); MEAN PLATELET VOLUME 9.4 FL (7.4-10.4); MONOCYTES # (AUTO) 1.8 X10'3 (0-0.9); MONOCYTES % (AUTO) 11.5 % (2-12); NEUTROPHILS # (AUTO) 11.1 X10'3 (1.8-7.7); NEUTROPHILS % (AUTO) 72.6 % (42-75); PLATELET COUNT 129 X10'3 (140-440); RED BLOOD COUNT 3.81 X10'6 (4.70-6.10); RED CELL DISTRIBUTION WIDTH 13.3 % (11.5-14.5); WHITE BLOOD COUNT 15.3 X10'3 (4.5-11.0)
[2020-07-20 06:00] VITALS: BP 112/82
--- NOTE | 2020-07-20 06:00 | NUR ---
DISCUSSED IMPORTANCE OF USING INCENTIVE SPIROMETER, FLUTTER VALVE, USING CALL LIGHT WHEN AMBULATING TO BATHROOM TO REMAIN ON TELE MONITOR AND PHYSICAL THERAPY/STRENGTHENING TO FACISLITATE HEALING AND RECOVERY FROM SURGERY. POLO
[2020-07-20 06:20] LABS: ALBUMIN 3.3 G/DL (3.4-5.0); ANION GAP 4 (8-16); BLOOD UREA NITROGEN 20 MG/DL (7-18); BUN/CREATININE RATIO 19.6 (5.4-32.0); CHLORIDE 102 MMOL/L (99-107); CREATININE 1.02 MG/DL (0.60-1.10); GLUCOSE 122 MG/DL (70-104); SODIUM 137 MMOL/L (135-145); TOTAL CARBON DIOXIDE 30.8 MMOL/L (24-32); eGFR 75 ML/MIN
--- NOTE | 2020-07-20 06:45 | NUR ---
Problems reprioritized. Patient report given, questions answered & plan of care reviewed with JUANIS LINK.
[2020-07-20] MEDS: pantoprazole 40mg Tablet.DR PO SCH (07:51)
[2020-07-20] MEDS: ascorbic acid 500mg tablet PO SCH ×2 (07:51→20:20)
[2020-07-20] MEDS: magnesium Cl slow-release 64mg tablet PO SCH ×2 (07:51→20:19)
[2020-07-20] MEDS: aspirin 325mg tablet, delayed-release (Ecotrin) PO SCH (07:54)
[2020-07-20] MEDS: sennosides/docusate sodium tablet PO SCH ×2 (07:54→20:20)
[2020-07-20] MEDS: guaiFENesin ER 600mg tablet PO SCH ×2 (07:54→20:20)
[2020-07-20] MEDS: carvedilol 6.25mg tablet PO SCH ×2 (07:54→20:18)
[2020-07-20] MEDS: potassium Cl 20 mEq SR tablet PO SCH ×2 (07:54→20:26)
[2020-07-20 11:00] VITALS: BP 110/68
[2020-07-20 15:00] VITALS: BP 116/65
[2020-07-20 18:00] VITALS: BP 118/74
--- NOTE | 2020-07-20 18:23 | NUR ---
Problems reprioritized. Patient report given, questions answered & plan of care reviewed with FARIBA Jack.
--- NOTE | 2020-07-20 18:29 | NUR ---
Patient in room MED 315. I have received report from JUANIS LINK and had the opportunity to ask questions and assume patient care.
[2020-07-20] MEDS: HYDROcodone/acetaminophen 10/325mg tab PO PRN (20:19)
[2020-07-20] MEDS: atorvastatin 10mg tablet PO SCH (20:19)
[2020-07-20 22:00] VITALS: BP 89/57
[2020-07-21 02:00] VITALS: BP 116/70
[2020-07-21 05:16] LABS: BASOPHILS % (AUTO) 0.3 % (0-1); EOSINOPHILS # (AUTO) 0.3 X10'3 (0-0.9); EOSINOPHILS % (AUTO) 2.9 % (0-6); HEMATOCRIT 35.7 % (42.0-52.0); HEMOGLOBIN 12.1 g/dl (14.0-17.9); LYMPHOCYTES # (AUTO) 1.9 X10'3 (1.1-4.8); LYMPHOCYTES % (AUTO) 17.3 % (21-51); MEAN CORPUSCULAR HEMOGLOBIN 32.5 PG (27.0-31.0); MEAN CORPUSCULAR HGB CONC 33.9 g/dL (33.0-36.5); MEAN CORPUSCULAR VOLUME 95.7 FL (78-98); MEAN PLATELET VOLUME 9.1 FL (7.4-10.4); MONOCYTES # (AUTO) 1.4 X10'3 (0-0.9); MONOCYTES % (AUTO) 12.7 % (2-12); NEUTROPHILS # (AUTO) 7.3 X10'3 (1.8-7.7); NEUTROPHILS % (AUTO) 66.8 % (42-75); PLATELET COUNT 141 X10'3 (140-440); RED BLOOD COUNT 3.73 X10'6 (4.70-6.10); RED CELL DISTRIBUTION WIDTH 13.2 % (11.5-14.5)
[2020-07-21 05:26] LABS: ANION GAP 5 (8-16); BLOOD UREA NITROGEN 18 MG/DL (7-18); BUN/CREATININE RATIO 17.6 (5.4-32.0); CALCIUM 8.7 MG/DL (8.5-10.1); CHLORIDE 104 MMOL/L (99-107); CREATININE 1.02 MG/DL (0.60-1.10); GLUCOSE 113 MG/DL (70-104); POTASSIUM 4.3 MMOL/L (3.5-5.1); SODIUM 136 MMOL/L (135-145); TOTAL CARBON DIOXIDE 26.9 MMOL/L (24-32); eGFR 75 ML/MIN
[2020-07-21 06:00] VITALS: BP 121/74
--- NOTE | 2020-07-21 06:35 | NUR ---
Problems reprioritized. Patient report given, questions answered & plan of care reviewed with DAVIE LINK.
--- NOTE | 2020-07-21 07:06 | NUR ---
Patient in room MED 315. I have received report from tru virgen and had the opportunity to ask questions and assume patient care.
[2020-07-21] MEDS: pantoprazole 40mg Tablet.DR PO SCH (07:31)
[2020-07-21] MEDS: sennosides/docusate sodium tablet PO SCH (07:31)
[2020-07-21] MEDS: magnesium Cl slow-release 64mg tablet PO SCH (08:30)
[2020-07-21] MEDS: aspirin 325mg tablet, delayed-release (Ecotrin) PO SCH (08:30)
[2020-07-21] MEDS: carvedilol 6.25mg tablet PO SCH (08:30)
[2020-07-21] MEDS: guaiFENesin ER 600mg tablet PO SCH (08:30)
[2020-07-21] MEDS: potassium Cl 20 mEq SR tablet PO SCH (08:31)
[2020-07-21] MEDS: ascorbic acid 500mg tablet PO SCH (08:31)
[2020-07-21] MEDS ORDERED: SENN-166 PO (09:31)
[2020-07-21] MEDS ORDERED: HYDR-4353 PO (09:31)
--- NOTE | 2020-07-21 11:00 | NUR ---
reviewed all discharge instructions,prescriptions confirmed with ian in [place],pt aware of all cardiac mobility precautions and need for f/u appts,s.l. dc'd from left wrist,site clear.Pt discharged via w/c with all belongings
--- NOTE | 2020-07-21 13:34 | NUR ---
Pt discharged prior to RD visit for CABG/HH diet eds. RD left voicemail at pt home phone using number provided in EMR. RD provided brief verbal review of protein needs for wound healing, encouraged pt to contact dietitian's office if further questions, and notified pt that written eds w/ RD contact information are being mailed to home address at this time. Addendum: 07/21/20 at [address] Amended: Links added.
== END 2020-07-21 11:22 | disposition home or self-care (01) | DRG 236 ==
LOC: PAS 05:17 → CICU 2S 05:18 → EDSTATUS 07:30 → CICU 2S 13:51 → PAS 13:51 → MED 3N 07-19 13:27
PROVIDERS: ADMIT Thoracic Surgery (Cardiothoracic Vascular Surgery); ATTEND Thoracic Surgery (Cardiothoracic Vascular Surgery)
PROC: 06BQ4ZZ Excision of Left Saphenous Vein, Percutaneous Endoscopic Approach (ICD-10-PCS; 2020-07-17)
PROC: 02100Z8 Bypass Coronary Artery, One Artery from Right Internal Mammary, Open Approach (ICD-10-PCS; 2020-07-17)
PROC: 021209W Bypass Coronary Artery, Three Arteries from Aorta with Autologous Venous Tissue, Open Approach (ICD-10-PCS; 2020-07-17)
PROC: 5A1221Z Performance of Cardiac Output, Continuous (ICD-10-PCS; 2020-07-17)
PROC: B24BZZ4 Ultrasonography of Heart with Aorta, Transesophageal (ICD-10-PCS; 2020-07-17)
PROC: 05HY33Z Insertion of Infusion Device into Upper Vein, Percutaneous Approach (ICD-10-PCS; 2020-07-17)
PROC: 02100Z9 Bypass Coronary Artery, One Artery from Left Internal Mammary, Open Approach (ICD-10-PCS; principal; 2020-07-17 06:55)
DX: I25.10 Atherosclerotic heart disease of native coronary artery without angina pectoris (principal); J45.909 Unspecified asthma, uncomplicated; I10 Essential (primary) hypertension; E78.00 Pure hypercholesterolemia, unspecified; Z82.49 Family history of ischemic heart disease and other diseases of the circulatory system
CPT/HCPCS: 0232T; 93312; 93325; Z7506; Z7508; 36415; 36600; 71045; 71046; 80048; 80053; 81001; 82330; 82435; 82803; 82947; 82948; 83036; 83735; 84100; 84132; 84295; 85018; 85025; 85347; 85384; 85610; 85730; 86885; 86900; 86901; 86920; 87081; 87635; 93005; 94002; 94668; 94760; 97110; 97116; 97161; 97530; A4618; A6258; A6402; A6449; A7000; A7048; C1713; C1751; C9113; C9250; G0378; J0131; J0690; J1265; J1644; J1815; J1940; J2001; J2060; J2150; J2270; J2370; J2440; J2704; J2720; J3370; J3475; J3480; J3490; J7030; J7040; J7050; J7120; P9045; P9047

== ENCOUNTER 2023-06-28 11:52 | Emergency (ER) | payer BC ==
[~2023-06-28] VITALS: Ht 185.4 cm; Wt 104.5 kg
[~2023-06-28 11:52] MED LIST changes: -AMLO-94 PO; +HYDR-4353 PO; -LORazepam 2 mg/ml vial ONE; -ROSU20TA31 PO; +ROSU20TA73 PO; +SENN-166 PO; -albuterol 2.5 MG/3 ML nebule NEB PRN; -ceFAZolin 1000mg inj ONE; -ringers solution, lacted 1,000 ML IV SCH
[2023-06-28 11:55] VITALS: BP 189/123; PULSE 81; RESP 16; TEMP 97.6; O2SAT 98
== END 2023-06-28 17:07 | disposition left against medical advice (07) ==
LOC: ER 11:53
DX: H57.12 Ocular pain, left eye (principal); Z53.21 Procedure and treatment not carried out due to patient leaving prior to being seen by health care provider
CPT/HCPCS: 99281